=== PATIENT | male | born 1985 | race Caucasian/White ===

== ENCOUNTER 2020-09-08 21:44 | Emergency (ER) | payer SELFPAY ==
[2020-09-08 21:55] VITALS: BP 133/74; PULSE 84; RESP 16; TEMP 36.4; O2SAT 99; BMI 21.1
[2020-09-08 22:10] LABS: COVID19 -Nasal RAPID Negative (Negative)
--- NOTE | 2020-09-08 22:21 | PC.NURSE ---
Pt reports getting coffee at a gas station 1-2 weeks ago and there was a person that looked very sick and pt states this person told him he had COVID while waiting in line to get coffee. Pt attributes this interaction as a possible exposure.
--- NOTE | 2020-09-08 22:50 | ED_ITS ---
HPI - URI/Sore Throat General Chief Complaint: Upper Respiratory Symptoms Stated Complaint: FEVER COUGH CHILLS STOMACH ACHES Time Seen by Provider: 09/08/20 22:45 Source: patient Mode of arrival: Ambulatory History of Present Illness HPI Narrative: Patient complains 2 weeks of cough cold congestion fever body aches and chills. No sick contacts. No COVID exposure. Has not tried any medications for relief. No history of asthma or bronchitis or pneumonia. Patient does not smoke. MD Complaint: fever and cough Related Data Previous Rx's Medication Instructions Recorded benzonatate [Tessalon Perles] 100 mg PO TID PRN #20 cap 09/08/20 ibuprofen 600 mg PO Q6H PRN #24 tab 09/08/20 Allergies Allergy/AdvReac Type Severity Reaction Status Date / Time No Known Drug Allergies Allergy Verified 09/08/20 22:18 Review of Systems Review of Systems Narrative: GENERAL: Complains chills, fatigue, malaise, fever, sweats. HEENT: Denies sinus pain, ear pain, sore throat, difficulty swallowing RESPIRATORY: Denies dyspnea, complains of productive cough CARDIOVASCULAR: Denies chest pain, palpitations, edema, GASTROINTESTINAL: Denies nausea, vomiting, complains abdominal pain, denies diarrhea, constipation, melena. : Denies dysuria, frequency, hematuria MUSCULOSKELETAL: denies muscle or bony pain SKIN: Denies rash, skin lesions NEUROLOGIC: Denies weakness, headache, numbness, change in speech, confusion PSYCHIATRIC: No SI or HI or hallucinations ROS Unobtainable: All systems reviewed & are unremarkable except as noted in HPI and below Exam Narrative Exam Narrative: GENERAL: patient appears stated age. Well-nourished, well- developed patient, in no distress, not toxic not dyspneic HEAD: Normocephalic. EYES: Pupils equal round and reactive. No scleral icterus. No injection no discharge ENT: Mucous membranes moist. No drooling no tongue elevation no trismus no malocclusion NECK: Trachea midline. Non tender CARDIOVASCULAR: Regular rate and rhythm without murmurs, gallops, or rubs. RESPIRATORY: Clear to auscultation. Breath sounds equal bilaterally. No wheezes, rales, or rhonchi. GASTROINTESTINAL: Abdomen soft, non-tender, nondistended. Bowel sounds present no peritoneal signs EXTREMITIES: No gross deformities. BACK: Nontender without deformity or crepitance. No flank tenderness. NEURO: AOx4. SKIN: Warm and dry PSYCH: Not anxious, is cooperative Initial Vital Signs Initial Vital Signs: Vital Signs Temperature 97.5 F L 09/08/20 21:55 Pulse Rate 84 09/08/20 21:55 Respiratory Rate 16 09/08/20 21:55 Blood Pressure 133/74 09/08/20 21:55 Pulse Oximetry 99 09/08/20 21:55 Course Course Course Narrative: No new complaints during course of stay. Orders Ordered: ED Orders 09/08/20 21:50 COVID19 Stat 09/08/20 22:20 Respiratory Panel (Film Array) Stat Discontinued Medications Benzonatate (Benzonatate 100 Mg Capsule) 100 mg PO NOW ONE Stop: 09/08/20 22:50 Last Admin: 09/08/20 23:07 Dose: 100 mg Documented by: JOZEF Ibuprofen (Ibuprofen 400 Mg Tablet) 800 mg PO NOW ONE Stop: 09/08/20 22:50 Last Admin: 09/08/20 23:08 Dose: 800 mg Documented by: JOZEF Reevaluation(s) Reevaluation #1: Reviewed results with patient. Agrees no chest x-ray at this time. Clear lung sounds with no hypoxia. Will treat symptomatically for viral bronchitis/upper respiratory infection Time: 23:19 Vital Signs Vital signs: Vital Signs - 8 hr 09/08/20 21:55 09/08/20 23:22 Temperature 97.5 F L 98.2 F Pulse Rate 84 70 Respiratory Rate 16 16 Blood Pressure 133/74 144/86 H Pulse Oximetry 99 98 MDM - URI/Sore Throat Differential Diagnosis Differential diagnosis: Likely upper respiratory infection, viral infection, bronchitis and influenza Lab Data Attestation: I reviewed the patient's lab results. Labs: Lab Results 09/08/20 09/08/20 Range/Units 21:50 22:20 Chlamy pneumoniae PCR Not detected (Not Detect) Adenovirus (PCR) Not detected (Not Detect) B.parapertussis DNA PCR Not detected (Not Detect) Coronavirus OC43 (PCR) Not detected (Not Detect) Coronavirus HKU1 (PCR) Not detected (Not Detect) Coronavirus 229E (PCR) Not detected (Not Detect) SARS-CoV-2 (PCR) Negative Not detected (Negative) Coronavirus NL63 (PCR) Not detected (Not Detect) Human Metapneumovir PCR Not detected (Not Detect) Influenza Type A (PCR) Not detected (Not Detect) Influenza Type B (PCR) Not detected (Not Detect) M. pneumoniae (PCR) Not detected (Not Detect) Parainfluenza 1 (PCR) Not detected (Not Detect) Parainfluenza 2 (PCR) Not detected (Not Detect) Parainfluenza 3 (PCR) Not detected (Not Detect) Parainfluenza 4 (PCR) Not detected (Not Detect) RSV (PCR) Not detected (Not Detect) Entero/Rhino (PCR) Not detected (Not Detect) MDM Narrative Medical decision making narrative: Appropriate for discharge home. No blood work indicated. No fever. Abdomen is soft nontender. No imaging required for abdomen. Patient given food here to eat. Discharge Plan Departure Patient Disposition: Home Clinical Impression: Upper respiratory infection Qualifiers: URI type: unspecified URI Qualified Code(s): J06.9 - Acute upper respiratory infection, unspecified Instructions: DI for Viral Upper Respiratory Infection -- Adult Activity Restrictions/Additional Instructions: See family doctor or call provided a clinic list on Friday for office recheck next week. Keep well hydrated. Return if worse or if any questions or concerns. Prescriptions have been sent to [facility]'s pharmacy here in town Prescriptions: New ibuprofen 600 mg tablet 600 mg PO Q6H PRN (Reason: fever or pain) Qty: 24 RF: 0 benzonatate [Tessalon Perles] 100 mg capsule 100 mg PO TID PRN (Reason: cough) Qty: 20 RF: 0 Referrals: [facility] [Outside]
[2020-09-08] MEDS: BENZONATATE 100 MG CAPSULE PO (23:07)
[2020-09-08] MEDS: IBUPROFEN 400 MG TABLET 800 MG PO (23:08)
[2020-09-08 23:15] LABS: Adenovirus Not Detected (Not Detect); Bordetella pertussis Not Detected (Not Detect); Chlamydophila pneumoniae Not Detected (Not Detect); Coronavirus 229E Not Detected (Not Detect); Coronavirus HKU1 Not Detected (Not Detect); Coronavirus NL 63 Not Detected (Not Detect); Coronavirus OC43 Not Detected (Not Detect); Human Metapneumovirus Not Detected (Not Detect); Human Rhinovirus/Enterovirus Not Detected (Not Detect); Influenza A Not Detected (Not Detect); Influenza B Not Detected (Not Detect); Mycoplasma pneumoniae Not Detected (Not Detect); Parainfluenza Virus 1 Not Detected (Not Detect); Parainfluenza Virus 2 Not Detected (Not Detect); Parainfluenza Virus 3 Not Detected (Not Detect); Parainfluenza Virus 4 Not Detected (Not Detect); Respiratory Syncytial Virus Not Detected (Not Detect); SARS- CoV-2 Not Detected (Not Detecte)
[2020-09-08 23:22] VITALS: BP 144/86; PULSE 70; RESP 16; TEMP 36.8; O2SAT 98
== END 2020-09-08 23:29 | disposition home or self-care (01) ==
LOC: ED 23:01
PROVIDERS: Emergency Provider Emergency Medicine
DX: J06.9 Acute upper respiratory infection, unspecified (principal); R50.9 Fever, unspecified; R05 Cough; Z20.822 Contact with and (suspected) exposure to COVID-19
CPT/HCPCS: 87633; 87635; 99281; 99283; C9803